=== PATIENT | female | born 1985 | race Caucasian/White ===

== ENCOUNTER 2016-12-06 21:52 | Emergency (ER) | payer MEDICAID ==
[~2016-12-06] VITALS: Ht 167.6 cm; Wt 59.1 kg
[2016-12-06] MEDS ORDERED: KETOROLAC10 MG PO (23:25)
[2016-12-06 23:33] VITALS: BP 110/68
== END 2016-12-06 23:33 | disposition home or self-care (01) ==
LOC: ED 21:52
DX: S63.501A Unspecified sprain of right wrist, initial encounter (principal); S60.211A Contusion of right wrist, initial encounter; W22.8XXA Striking against or struck by other objects, initial encounter; Y92.007 Garden or yard of unspecified non-institutional (private) residence as the place of occurrence of the external cause

== ENCOUNTER → 2017-05-05 | Outpatient (CLI) | payer SELFPAY ==
[~2017-05-05] MED LIST: KETOROLAC10 MG PO
== END ==
LOC: RAD 11:30
DX: K02.9 Dental caries, unspecified (principal)
CPT/HCPCS: Q9967

== ENCOUNTER 2019-07-12 09:29 | Emergency (ER) | payer MEDICAID ==
[~2019-07-12] VITALS: Ht 165.1 cm; Wt 59.1 kg
[2019-07-12 10:10] LABS: HEMATOCRIT 39.3 % (37.0-47.0); HEMOGLOBIN 12.7 g/dL (12.5-16.0); MEAN CELL VOLUME 89 fl (78-100); MEAN CORPUSCULAR HEMOGLOBIN 29 pg (27-31); MEAN CORPUSCULAR HGB CONC 32 g/dL (33-37); PLATELET COUNT 379 K/mm3 (130-400); RED BLOOD COUNT 4.43 M/mm3 (4.10-5.30); RED CELL DISTRIBUTION WIDTH 14.1 % (11.5-14.5)
[2019-07-12 10:17] LABS: ALBUMIN 3.8 g/dL (3.5-5.0); POTASSIUM 4.1 mmol/L (3.5-5.1)
[2019-07-12 10:18] LABS: CALCIUM 9.1 mg/dL (8.3-10.5)
[2019-07-12 10:20] LABS: TOTAL PROTEIN 7.5 g/dL (6.4-8.3)
[2019-07-12 10:21] LABS: TOTAL BILIRUBIN 0.5 mg/dL (0.2-1.2)
[2019-07-12 10:22] LABS: WHITE BLOOD COUNT 20.7 K/mm3 (4.8-10.8)
[2019-07-12 10:50] LABS: URINE APPEARANCE CLOUDY; URINE BILIRUBIN NEGATIVE (NEGATIVE); URINE BLOOD 250 ery/uL (NEGATIVE); URINE COLOR YELLOW; URINE GLUCOSE NEGATIVE (NEGATIVE); URINE KETONE NEGATIVE (NEGATIVE); URINE LEUKOCYTE ESTERASE 2+ (NEGATIVE); URINE NITRATE POSITIVE (NEGATIVE); URINE PROTEIN(semi-quant) 2+ mg/dL (NEGATIVE); URINE UROBILINOGEN NORMAL (NORMAL); URINE WBC >50 /hpf (0-3)
[2019-07-12 10:51] LABS: LYMPHOCYTE 10 % (20-51); MONOCYTE 1 % (3-10); NEUTROPHILS 88 % (42-75)
[2019-07-12] MEDS ORDERED: CIPRO500 M1 PO (12:22)
[2019-07-12 13:21] VITALS: BP 122/68
== END 2019-07-12 13:25 | disposition home or self-care (01) ==
LOC: ED 09:29
PROVIDERS: Nurse Practitioner Family
DX: N10 Acute pyelonephritis (principal); Z98.51 Tubal ligation status
CPT/HCPCS: J0744; J1885; J2405; J7030

== ENCOUNTER 2019-07-16 16:59 | Observation (INO) | payer MEDICAID ==
[~2019-07-16] VITALS: Ht 165.1 cm; Wt 57.2 kg
[~2019-07-16 16:59] MED LIST changes: +CIPRO500 M1 PO
[2019-07-16 17:53] LABS: HEMATOCRIT 37.4 % (37.0-47.0); HEMOGLOBIN 12.3 g/dL (12.5-16.0); MEAN CELL VOLUME 87 fl (78-100); MEAN CORPUSCULAR HEMOGLOBIN 29 pg (27-31); MEAN CORPUSCULAR HGB CONC 33 g/dL (33-37); MEAN PLATELET VOLUME 9.4 fl (7.4-10.4); PLATELET COUNT 432 K/mm3 (130-400); RED BLOOD COUNT 4.29 M/mm3 (4.10-5.30); RED CELL DISTRIBUTION WIDTH 14.7 % (11.5-14.5)
[2019-07-16 18:05] LABS: POTASSIUM 4.6 mmol/L (3.5-5.1)
[2019-07-16 18:05] LABS: URINE APPEARANCE CLEAR; URINE BILIRUBIN NEGATIVE (NEGATIVE); URINE BLOOD 250 ery/uL (NEGATIVE); URINE COLOR YELLOW; URINE GLUCOSE NEGATIVE (NEGATIVE); URINE KETONE NEGATIVE (NEGATIVE); URINE LEUKOCYTE ESTERASE TRACE (NEGATIVE); URINE NITRATE NEGATIVE (NEGATIVE); URINE PROTEIN(semi-quant) TRACE mg/dL (NEGATIVE); URINE UROBILINOGEN NORMAL (NORMAL)
[2019-07-16 18:06] LABS: ALBUMIN 3.5 g/dL (3.5-5.0); CALCIUM 9.1 mg/dL (8.3-10.5)
[2019-07-16 18:06] LABS: URINE WBC 16-30 /hpf (0-3)
[2019-07-16 18:08] LABS: TOTAL PROTEIN 7.5 g/dL (6.4-8.3)
[2019-07-16 18:09] LABS: TOTAL BILIRUBIN 0.2 mg/dL (0.2-1.2)
[2019-07-16 18:41] LABS: LYMPHOCYTE 29 % (20-51); MONOCYTE 12 % (3-10); NEUTROPHILS 59 % (42-75)
[2019-07-16 20:09] VITALS: BP 99/66
[2019-07-16 20:22] VITALS: BP 99/66
[2019-07-16 22:20] VITALS: BP 111/74
[2019-07-17 01:35] VITALS: BP 94/64
[2019-07-17 05:35] VITALS: BP 92/56
[2019-07-17 09:49] VITALS: BP 93/57
[2019-07-17] MEDS ORDERED: CIPRO500 M1 PO (11:39)
== END 2019-07-17 12:30 | disposition home or self-care (01) ==
LOC: ED 16:59 → MED/SURG 19:19
PROVIDERS: Family Medicine; ADMIT Nurse Practitioner Primary Care
DX: N12 Tubulo-interstitial nephritis, not specified as acute or chronic (principal); F17.210 Nicotine dependence, cigarettes, uncomplicated; Z88.1 Allergy status to other antibiotic agents
CPT/HCPCS: G0378; J7030

== ENCOUNTER 2023-03-29 21:33 | Emergency (ER) | payer MEDICAID ==
[~2023-03-29] VITALS: Ht 167.6 cm; Wt 68.2 kg
[2023-03-29 21:55] VITALS: BP 106/64
== END 2023-03-29 22:45 | disposition home or self-care (01) ==
LOC: ED 21:33
DX: S60.221A Contusion of right hand, initial encounter (principal); Z28.310 Unvaccinated for COVID-19; Y04.8XXA Assault by other bodily force, initial encounter